=== PATIENT | female | born 1990 | race American Indian/Alaskan Native ===

== ENCOUNTER 2021-06-22 15:34 | Emergency (ER) | payer SELFPAY ==
--- NOTE | 2021-06-22 18:22 | Emergency Department Report ---
ED Chest Pain HPI - General Chief Complaint: Chest Pain Stated Complaint: CHEST PAIN Time Seen by Provider: 06/22/21 18:10 Source: patient Mode of arrival: Ambulatory Limitations: No Limitations - History of Present Illness Initial Comments: The patient was evaluated in the emergency department for symptoms described in the history of present illness. He/she was evaluated in the context of the global COVID-19 pandemic, which necessitated consideration that the patient might be at risk for infection with the virus that causes COVID-19. Institutional protocols and algorithms that pertain to the evaluation of patients at risk for COVID-19 are in a state of rapid change based on information released by regulatory bodies including the CDC and federal and state organizations. These policies and algorithms were followed during the patient's care in the emergency department. Please note that these policies, procedures and recommendations changed on a rapid basis. 31-year-old -[place] female presents to the emergency room states that she woke up this morning with left upper chest pain. Patient states that she feels that she can grab her upper chest where the pain is. She is taking nothing for it. Patient states applying pressure makes it better nothing makes it worse. She denies any shortness of breath denies any nausea no vomiting no sweating. She is taking nothing for discomfort. Her last menstrual period was 06/01/2021. 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 She reports she had history of childhood asthma but has grown out of it. Patient is not vaccinated. She denies any cigarette smoking no marijuana no alcohol use. She denies any family history of cardiac disease. -: This morning Onset: awoke with symptoms Pain Location: left chest (Upper chest) Severity scale (0 -10): 4 Quality: aching Consistency: constant Improves With: other (Applying pressure) Worsens With: nothing re: denies: nausea, vomting, diaphoresis, dyspnea, sense of impending doom Other Symptoms: denies: cough, fever, syncope, rash, acid taste in mouth, leg swelling, palpitations, burping Treatments Prior to Arrival: none - Related Data On Oral Contraceptives: No Previous Rx's Medication Instructions Recorded Last Taken Type Naproxen 500 mg PO BID PRN #30 tablet 06/22/21 Unknown Rx Allergies Allergy/AdvReac Type Severity Reaction Status Date / Time Penicillins Allergy Hives Verified 06/22/21 15:59 Heart Score - HEART Score History: Slightly suspicious EKG: Non-specific Age: < 45 Risk factors: No known risk factors Troponin: < normal limit HEART Score: 1 - EKG Read Time Time EKG Completed: 16:21 EKG Read Time: 16:23 ED Review of Systems ROS: Stated complaint: CHEST PAIN Other details as noted in HPI ED Past Medical Hx - Past Medical History Previous Medical History?: No - Surgical History Past Surgical History?: No - Medications Home Medications: Home Medications Medication Instructions Recorded Confirmed Last Taken Type Naproxen 500 mg PO BID PRN #30 tablet 06/22/21 Unknown Rx ED Physical Exam - General Limitations: No Limitations General appearance: alert, in no apparent distress - Head Head exam: Present: atraumatic, normocephalic - Eye Eye exam: Present: normal appearance - ENT ENT exam: Present: mucous membranes moist - Neck Neck exam: Present: normal inspection, full ROM - Respiratory Respiratory exam: Present: normal lung sounds bilaterally, chest wall tenderness (Left pectoralis major tenderness). Absent: wheezes, rhonchi, accessory muscle use - Cardiovascular Cardiovascular Exam: Present: bradycardia, other (Murmur appreciated) - GI/Abdominal GI/Abdominal exam: Present: soft. Absent: distended, tenderness ED Course Vital Signs 06/22/21 15:56 Temperature 98.2 F Pulse Rate 51 L Respiratory 18 Rate Blood Pressure 98/42 O2 Sat by Pulse 99 Oximetry BECKY score - Becky Score Age > 65: (0) No Aspirin use within the Past 7 Days: (0) No 3 or more CAD Risk Factors: (0) No 2 or more Angina events in past 24 hrs: (0) No Known CAD with more than 50% Stenosis: (0) No Elevated Cardiac Markers: (0) No ST Deviation Greater than 0.5mm: (0) No BECKY Score: 0 ED Medical Decision Making - Medical Decision Making 31-year-old -[place] female presents to the emergency room states that she woke up this morning with left upper chest pain. Patient states that she feels that she can grab her upper chest where the pain is. She is taking nothing for it. Patient states applying pressure makes it better nothing makes it worse. She denies any shortness of breath denies any nausea no vomiting no sweating. She is taking nothing for discomfort. Her last menstrual period was 06/01/2021. 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 She reports she had history of childhood asthma but has grown out of it. Patient is not vaccinated. She denies any cigarette smoking no marijuana no alcohol use. She denies any family history of cardiac disease. Patient chest pain Critical care attestation.: If time is entered above; I have spent that time in minutes in the direct care of this critically ill patient, excluding procedure time. ED Disposition Clinical Impression: Atypical chest pain, Bradycardia Disposition: HOME / SELF CARE / HOMELESS Is pt being admited?: No Does the pt Need Aspirin: No Condition: Stable Instructions: Nonspecific Chest Pain, Adult, [id number], Chest Wall Pain, [id number], Bradycardia, Adult Additional Instructions: EKG is nonactionable. Physical examination shows that you have some muscle tenderness in your right upper arm chest called the pectoralis major. I do recommend naproxen and rest increase your fluid intake and follow-up with a cloth beamer as well as her primary care provider. Prescriptions: Naproxen 500 mg PO BID PRN #30 tablet PRN Reason: Pain , Severe (7-10) Referrals: [facility], P.CN[facility]anael [Provider Group] - 3-5 Days NOMAN FREDERICK FNP [Referring] - 3-5 Days Forms: Work/School Release Form(ED) Time of Disposition: 18:30
[2021-06-22 19:31] VITALS: BP 114/61
--- NOTE | 2021-06-24 08:44 | Electrocardiograph Report ---
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
== END 2021-06-22 19:27 | disposition home or self-care (01) ==
LOC: ED 15:34
DX: R07.89 Other chest pain (principal); R00.1 Bradycardia, unspecified; Z88.0 Allergy status to penicillin; Z79.899 Other long term (current) drug therapy
CPT/HCPCS: 93005; 99282

== ENCOUNTER 2021-09-05 12:57 | Emergency (ER) | payer SELFPAY ==
[2021-09-05 13:58] VITALS: BP 122/70
[2021-09-05] MEDS ORDERED: ACETAMINOPHEN W/CODEINE 300-30 MG TAB PO ONE (15:33)
--- NOTE | 2021-09-05 15:33 | Emergency Department Report ---
Upper Extremity - HPI Chief Complaint: Extremity Injury, Upper Stated Complaint: EXTREMITY PAIN Time Seen by Provider: 09/05/21 15:08 Upper Extremity: Right Shoulder, Right Elbow, Right Wrist Occurred When: 1 Day Mechanism: Other (struck door few times) Severity: moderate Symptoms: Yes Pain with Movement, No Deformity, No Limited Range of Movement, No Numbness, No Weakness, No Swelling, No Bruising/Ecchymosis, No Laceration or Abrasion Other History: 31-year-old female presents to the ER today complaining of pain to her right shoulder right elbow and right wrist including right upper chest. She states that yesterday she was try to help her coworker get into her house. She states that the core collectors have out of the house and so she tried to open the door by slamming her shoulder/right upper extremity against the door a few times. She states that since then she has been having pain in her right shoulder, right upper chest, right clavicle, right elbow and right wrist. She states that the area feels swollen especially in the right shoulder. Is worse with movement. She has been taking naproxen without much relief. She reports no apparent bruising, open wounds or erythema. ED Review of Systems ROS: Stated complaint: EXTREMITY PAIN Other details as noted in HPI Comment: All other systems reviewed and negative Constitutional: denies: chills, fever Eyes: as per HPI ENT: denies: ear pain, throat pain Respiratory: denies: cough, shortness of breath, SOB with exertion, SOB at rest, wheezing Cardiovascular: other (right upper chest wall pain ). denies: chest pain, palpitations Gastrointestinal: denies: abdominal pain, nausea, diarrhea, constipation, hematemesis, hematochezia Genitourinary: denies: urgency, dysuria, frequency, hematuria, discharge, abnormal menses, dyspareunia Musculoskeletal: joint swelling, arthralgia, myalgia Skin: denies: rash, lesions, change in color, change in hair/nails, pruritus Neurological: denies: headache, weakness, numbness, paresthesias, confusion, abnormal gait, vertigo Psychiatric: denies: anxiety, depression, auditory hallucinations, visual hallucinations, homicidal thoughts, suicidal thoughts Hematological/Lymphatic: denies: easy bleeding, easy bruising, swollen glands ED Past Medical Hx - Medications Home Medications: Home Medications Medication Instructions Recorded Confirmed Last Taken Type Naproxen 500 mg PO BID PRN #30 tablet 06/22/21 Unknown Rx Acetaminophen/Codeine [Tylenol 1 tab PO Q4HR PRN #12 tablet 09/05/21 Unknown Rx /Codeine # 3 tab] Ketorolac [Toradol] 10 mg PO Q6H PRN #12 tablet 09/05/21 Unknown Rx Upper Extremity Exam - Exam General: Vital signs noted. No distress. Alert and acting appropriately. Shoulder Exam: Yes Shoulder Tenderness (Moderate ttp right shoulder), Yes Clavicle Tenderness (distal right clavicle), Yes AC Joint Tenderness (right AC ttp ), No Normal Range of Motion in Shoulder (ROM of right shoulder limited to about 90), No Shoulder Deformity Arm Exam: No Arm/Humerus Tenderness, No Arm Deformity Elbow: Yes Elbow Tenderness (lateral aspect of right elbow ), Yes Normal Range of Motion in Elbow, No Elbow Deformity Forearm: No Forearm Tenderness, No Forearm Deformity, No Pain with Pronation, No Pain with Supination Wrist: Yes Wrist Tenderness (mild ttp right wrist), Yes Normal ROM in Wrist (but with ttp on ROM of right wrist), No Wrist Deformity, No Snuffbox Tenderness, No Pain with Axial Thumb Compression Hand: Yes Normal ROM in Digit(s), No Hand Tenderness, No Hand Deformity, No Digit Tenderness, No Digit(s) Deformity, No Tendon Dysfunction CMS Exam: Yes Normal Distal Pulses, Yes Normal Capillary Refill, Yes Normal Distal Sensation, No Broken Skin ED Course Vital Signs 09/05/21 13:55 Temperature 98.2 F Pulse Rate 62 Respiratory 16 Rate Blood Pressure 122/70 [Left] O2 Sat by Pulse 100 Oximetry ED Medical Decision Making - Radiology Data Radiology results: report reviewed All xrays shows nothing acute. Critical care attestation.: If time is entered above; I have spent that time in minutes in the direct care of this critically ill patient, excluding procedure time. ED Disposition Clinical Impression: Contusion of right upper extremity Disposition: 01 HOME / SELF CARE / HOMELESS Is pt being admited?: No Does the pt Need Aspirin: No Condition: Stable Instructions: Contusion Additional Instructions: I recommend using the sling as discussed. Take the toradol and tylenol 3 for pain. You can apply ice to the area. I do recommend following up with account specialist especially if your symptoms persist. If you do not have an account specialist will be provided for you in your discharge instructions. Return to the ER if your symptoms changes or worsens in any way. Prescriptions: Ketorolac [Toradol] 10 mg PO Q6H PRN #12 tablet PRN Reason: Pain Acetaminophen/Codeine [Tylenol /Codeine # 3 tab] 1 tab PO Q4HR PRN #12 tablet PRN Reason: Pain Referrals: PRIMARY CAREMD [Primary Care Provider] - 3-5 Days JENA KESSLER MD [Staff Physician] - 3-5 Days Forms: Work/School Release Form(ED) Time of Disposition: 16:25
--- NOTE | 2021-09-05 16:13 | XRay Report ---
XR chest routine 2V INDICATION / CLINICAL INFORMATION: Right upper chest wall pain after hitting door COMPARISON: None available. FINDINGS: SUPPORT DEVICES: None. HEART / MEDIASTINUM: No significant abnormality. LUNGS / PLEURA: Lungs are clear. Costophrenic sulci are sharp. No pneumothorax. ADDITIONAL FINDINGS: No significant additional findings. IMPRESSION: 1. No acute findings. Signer Name: Jeremias Vizcaino MD Signed: 09/05/2021 4:08 PM Workstation Name: [email or web address]
--- NOTE | 2021-09-05 16:13 | XRay Report ---
XR shoulder 2+V RT INDICATION / CLINICAL INFORMATION: Shoulder injury. COMPARISON: None available. FINDINGS: No acute fracture. Clavicle is preserved. Normal alignment. Joint spaces are preserved. Impression: 1.No acute fracture. Signer Name: Jeremias Vizcaino MD Signed: 09/05/2021 4:09 PM Workstation Name: [email or web address]
--- NOTE | 2021-09-05 16:14 | XRay Report ---
XR elbow 3+V RT INDICATION / CLINICAL INFORMATION: Elbow injur/pain after hitting door. COMPARISON: None available. FINDINGS: No acute fracture. Normal alignment. Joint spaces are preserved. No destructive osseous lesion or s uspicious periosteal reaction. Impression: 1.No acute fracture. Signer Name: Jeremias Vizcaino MD Signed: 09/05/2021 4:10 PM Workstation Name: [email or web address]
--- NOTE | 2021-09-05 16:15 | XRay Report ---
XR wrist 3+V RT INDICATION / CLINICAL INFORMATION: Wrist injury after hitting door. COMPARISON: None available. FINDINGS: No acute fracture. Normal alignment. Joint spaces are preserved. No destructive osseous lesion or s uspicious periosteal reaction. Impression: 1.No acute fracture. Signer Name: Jeremias Vizcaino MD Signed: 09/05/2021 4:11 PM Workstation Name: [employer]
== END 2021-09-05 16:33 | disposition home or self-care (01) ==
LOC: ED 12:57
DX: S40.021A Contusion of right upper arm, initial encounter (principal); W22.8XXA Striking against or struck by other objects, initial encounter; Y93.89 Activity, other specified; Y92.89 Other specified places as the place of occurrence of the external cause; Y99.8 Other external cause status
CPT/HCPCS: 71046; 99283

== ENCOUNTER 2022-04-10 13:39 | Emergency (ER) | payer BC | END 2022-04-11 01:45 | disposition left against medical advice (07) | LOC: ED 13:39 | DX: M79.10 Myalgia, unspecified site (principal); Z53.21 Procedure and treatment not carried out due to patient leaving prior to being seen by health care provider ==